=== PATIENT | male | born 1960 | race Caucasian/White ===

== ENCOUNTER 2021-01-05 06:18 | Day surgery (SDC) | payer MEDICAID ==
[~2021-01-05 06:18] MED LIST: Dextrose 5%-0.45% NaCl 1,000 ML IV SCH; Midazolam 1 MG/ML 2 ML SDV ONE; Sodium Chloride 0.9% 10 ML Syringe FLUSH PRN; fentaNYL 100 MCG/2 ML SDV ONE
[2021-01-05] MEDS ORDERED: fentaNYL 100 MCG/2 ML SDV IV ONE ×3 (06:19→07:28)
[2021-01-05] MEDS ORDERED: Midazolam 1 MG/ML 2 ML SDV IV ONE ×7 (06:19→07:37)
--- NOTE | 2021-01-05 09:35 | OR ---
DATE: 01/05/2021 PROCEDURE: Total colonoscopy. INSTRUMENT USED: [id number]-H190DL Olympus video colonoscope. PREMEDICATIONS: Fentanyl 100 mcg intravenous, Versed 4 mg intravenous, nasal O2 cannula. Procedure was done under pulse oximetry, BP recording, and telemetry monitor. INDICATION: Screening colonoscopic examination is done for detection of any polypoid lesions and removal, endoscopic hemostasis therapy if needed. DESCRIPTION OF PROCEDURE: Initial rectal exam was unremarkable. Rigid anoscopy was normal. The colonoscope was passed with ease up to the ileocecal area. Photographs were taken of the normal-appearing cecum, identified by double- bulged ileocecal folds. No bleeding was noted from any of the visualized areas at the commencement of the examination. There was some amount of solid stool material scattered around that could not be aspirated clear, limiting visualization of few areas. Bowel preparation, [place] scale score 1 in right colon, 2 in transverse colon, and 1 in descending colon, total score 4. No stricture. No vascular ectasia. No large isolated ulcerations seen. No evidence of diffuse inflammatory bowel disease in the form of friability, contact bleeding, or ulcerations. No polyp or tumor mass identified. Probing the proximal sides of folds and flexures using adequate distention and clearing up the stool material, withdrawal of the scope was made, cecum to rectum time over 6 minutes. No bleeding was noted from any of the visualized areas at the completion of examination. IMPRESSION: Normal study. The patient tolerated the procedure well. [facility] /[id number]
[2021-01-05 10:16] VITALS: BP 124/74; PULSE 59
== END 2021-01-05 09:47 | disposition home or self-care (01) ==
LOC: DL.ENDO 06:18
PROVIDERS: ATTEND Internal Medicine Gastroenterology
DX: Z12.11 Encounter for screening for malignant neoplasm of colon (principal); E66.09 Other obesity due to excess calories; E11.9 Type 2 diabetes mellitus without complications; G47.33 Obstructive sleep apnea (adult) (pediatric); B18.2 Chronic viral hepatitis C; Z68.34 Body mass index [BMI] 34.0-34.9, adult
CPT/HCPCS: J2250; J3010; J7042

== ENCOUNTER 2021-09-22 18:29 | Inpatient (IN) | payer MEDICAID, OTHER ==
[2021-09-22] MEDS ORDERED: Sodium Chloride 0.9% 1,000 ML IV ONE ×2 (19:54→21:11)
[2021-09-22] MEDS ORDERED: Acetaminophen 325 MG Tab PO ONE (20:26)
[2021-09-22 21:38] LABS: ANION GAP 10.8 mEq/L (7-13)
[2021-09-22] MEDS ORDERED: Magnesium Sulfate/Water 2 GM in Premix Bag 1 BAG IV ONE (21:55)
[2021-09-22] MEDS ORDERED: Levofloxacin/Dextrose 5%-Water 750 MG in Premix Bag 1 BAG IV ONE (22:41)
[2021-09-22] MEDS ORDERED: HYDROmorphone 0.5 MG/0.5 ML Syringe IVPUSH PRN (23:56)
[2021-09-22] MEDS ORDERED: Polyethylene Glycol 3350 Powder 17 GM Packet PO PRN (23:56)
[2021-09-22] MEDS ORDERED: Ondansetron 4 MG/2 ML SDV IVPUSH PRN (23:56)
[2021-09-22] MEDS ORDERED: Acetaminophen/HYDROcodone 325-10 MG Tab PO PRN (23:56)
[2021-09-22] MEDS ORDERED: Albuterol/Ipratropium 3.0-0.5 MG/3 ML Neb Soln NEB PRN (23:56)
[2021-09-23] MEDS ORDERED: guaiFENesin/Dextromethorphan 100-10 MG/5 ML Soln 5 ML Cup PO PRN (00:09)
[2021-09-23] MEDS ORDERED: VANCOMYCIN IV SCH (00:15)
[2021-09-23] MEDS ORDERED: SODIUM CHLORIDE 0.9% IV SCH (00:15)
[2021-09-23] MEDS ORDERED: 50% Dextrose in Water 50 ML Syringe IVPUSH PRN ×2 (00:35→18:55)
[2021-09-23] MEDS ORDERED: Glucagon,Human Recombinant 1 MG Vial IM PRN ×2 (00:35→18:55)
[2021-09-23] MEDS: Piperacillin/Tazobactam 3.375 GM in Sodium Chloride 0.9% 100 ML IV SCH ×4 (00:59→17:50)
[2021-09-23] MEDS: Zolpidem 5 MG Tab PO PRN (01:00)
[2021-09-23] MEDS ORDERED: Dexamethasone 4 MG/ML SDV IVPUSH ONE (01:00)
[2021-09-23] MEDS ORDERED: VANCOmycin 1.5 GM/300 ML 1.5 GM in Premix Bag 1 BAG IV ONE (01:00)
[2021-09-23] MEDS ORDERED: Acetaminophen/HYDROcodone 325-5 MG Tab PO PRN (01:01)
[2021-09-23] MEDS: Insulin Lispro 100 Units/ML 3 ML Vial SUBCUT SCH ×4 (01:16→17:52)
[2021-09-23 06:57] LABS: RESPIRATORY SYNCYTIAL VIR NAA NEGATIVE (NEGATIVE)
[2021-09-23 07:09] LABS: CORONAVIRUS COVID-19 NAA POSITIVE (NEGATIVE)
[2021-09-23 07:59] LABS: ANION GAP 12.8 mEq/L (7-13); CHLORIDE,CL 99 mmol/L (98-107); SODIUM,NA 132 mmol/L (136-145)
[2021-09-23] MEDS ORDERED: Glimepiride 2 MG Tab PO SCH (08:00)
[2021-09-23] MEDS: Famotidine 20 MG Tab PO SCH ×2 (08:59→21:32)
[2021-09-23] MEDS: Escitalopram 10 MG Tab PO SCH (09:00)
[2021-09-23] MEDS: Allopurinol 300 MG Tab PO SCH (09:00)
[2021-09-23] MEDS: Enoxaparin 40 MG/0.4 ML Syringe SUBCUT SCH ×2 (09:00→21:31)
[2021-09-23] MEDS ORDERED: REMDESIVIR 200 MG in Sodium Chloride 0.9% 250 ML IV ONE (15:00)
[2021-09-23] MEDS: Acetaminophen 325 MG Tab PO PRN (17:54)
[2021-09-23] MEDS: Sodium Chloride 0.9% 10 ML Syringe FLUSH PRN (17:56)
[2021-09-23] MEDS ORDERED: Insulin Glarg,Human.Rec.Analog 100 Unit/ML SUBCUT SCH (21:00)
[2021-09-23] MEDS: Dexamethasone 4 MG Tab PO SCH (21:30)
[2021-09-23] MEDS: Glimepiride 2 MG Tab PO SCH (21:31)
[2021-09-24] MEDS: Piperacillin/Tazobactam 3.375 GM in Sodium Chloride 0.9% 100 ML IV SCH ×4 (00:23→17:42)
[2021-09-24 06:54] LABS: ANION GAP 14.6 mEq/L (7-13); CHLORIDE,CL 102 mmol/L (98-107); SODIUM,NA 136 mmol/L (136-145)
[2021-09-24] MEDS ORDERED: Dexamethasone 4 MG Tab PO SCH (09:00)
[2021-09-24] MEDS: Insulin Lispro 100 Units/ML 3 ML Vial SUBCUT SCH ×3 (09:13→17:15)
[2021-09-24] MEDS: Insulin Glarg,Human.Rec.Analog 100 Unit/ML SUBCUT SCH ×2 (09:15→21:23)
[2021-09-24] MEDS: Allopurinol 300 MG Tab PO SCH (09:17)
[2021-09-24] MEDS: Glimepiride 2 MG Tab PO SCH ×2 (09:18→21:22)
[2021-09-24] MEDS: Famotidine 20 MG Tab PO SCH ×2 (09:19→21:22)
[2021-09-24] MEDS: Dexamethasone 4 MG Tab PO SCH ×2 (09:19→21:22)
[2021-09-24] MEDS: Escitalopram 10 MG Tab PO SCH (09:19)
[2021-09-24] MEDS: Enoxaparin 40 MG/0.4 ML Syringe SUBCUT SCH ×2 (09:21→21:21)
[2021-09-24] MEDS: Sodium Chloride 0.9% 10 ML Syringe FLUSH PRN ×3 (12:46→16:01)
[2021-09-24] MEDS: REMDESIVIR 100 MG in Sodium Chloride 0.9% 100 ML IV SCH (15:05)
[2021-09-24] MEDS: Saccharomyces Boulardii (Probiotic) 250 MG Cap PO SCH ×2 (16:01→21:22)
[2021-09-24] MEDS: Zolpidem 5 MG Tab PO PRN (21:22)
[2021-09-24] MEDS: Melatonin 3 MG Tab PO SCH (21:22)
[2021-09-25] MEDS: Piperacillin/Tazobactam 3.375 GM in Sodium Chloride 0.9% 100 ML IV SCH ×4 (00:30→17:55)
[2021-09-25 06:25] LABS: ANION GAP 15.3 mEq/L (7-13); CHLORIDE,CL 100 mmol/L (98-107); SODIUM,NA 136 mmol/L (136-145)
[2021-09-25] MEDS: Sodium Chloride 0.9% 10 ML Syringe FLUSH PRN ×2 (09:45→17:54)
[2021-09-25] MEDS: Insulin Lispro 100 Units/ML 3 ML Vial SUBCUT SCH ×3 (09:46→16:58)
[2021-09-25] MEDS: Insulin Glarg,Human.Rec.Analog 100 Unit/ML SUBCUT SCH ×2 (09:49→21:41)
[2021-09-25] MEDS: Enoxaparin 40 MG/0.4 ML Syringe SUBCUT SCH ×2 (09:51→21:42)
[2021-09-25] MEDS: Dexamethasone 4 MG Tab PO SCH ×2 (09:53→21:38)
[2021-09-25] MEDS: Allopurinol 300 MG Tab PO SCH (09:54)
[2021-09-25] MEDS: Famotidine 20 MG Tab PO SCH ×2 (09:54→21:38)
[2021-09-25] MEDS: Sertraline 50 MG Tab PO SCH (09:55)
[2021-09-25] MEDS: Saccharomyces Boulardii (Probiotic) 250 MG Cap PO SCH ×2 (09:55→21:38)
[2021-09-25] MEDS: Cholecalciferol (Vitamin D3) 25 MCG Tab PO SCH (09:55)
[2021-09-25] MEDS: Glimepiride 2 MG Tab PO SCH ×2 (10:09→21:37)
[2021-09-25] MEDS: REMDESIVIR 100 MG in Sodium Chloride 0.9% 100 ML IV SCH (16:43)
[2021-09-25] MEDS: Melatonin 3 MG Tab PO SCH (21:38)
[2021-09-26] MEDS: Piperacillin/Tazobactam 3.375 GM in Sodium Chloride 0.9% 100 ML IV SCH ×4 (00:21→17:55)
[2021-09-26 07:05] LABS: ANION GAP 14.1 mEq/L (7-13); CHLORIDE,CL 100 mmol/L (98-107); SODIUM,NA 137 mmol/L (136-145)
[2021-09-26] MEDS: Insulin Lispro 100 Units/ML 3 ML Vial SUBCUT SCH ×3 (09:06→17:13)
[2021-09-26] MEDS: Insulin Glarg,Human.Rec.Analog 100 Unit/ML SUBCUT SCH ×2 (09:07→20:54)
[2021-09-26] MEDS: Famotidine 20 MG Tab PO SCH ×2 (09:07→20:54)
[2021-09-26] MEDS: Glimepiride 2 MG Tab PO SCH ×2 (09:08→20:52)
[2021-09-26] MEDS: Allopurinol 300 MG Tab PO SCH (09:08)
[2021-09-26] MEDS: Saccharomyces Boulardii (Probiotic) 250 MG Cap PO SCH ×2 (09:08→20:54)
[2021-09-26] MEDS: Cholecalciferol (Vitamin D3) 25 MCG Tab PO SCH (09:08)
[2021-09-26] MEDS: Sertraline 50 MG Tab PO SCH (09:09)
[2021-09-26] MEDS: Dexamethasone 4 MG Tab PO SCH ×2 (09:09→20:54)
[2021-09-26] MEDS: Enoxaparin 40 MG/0.4 ML Syringe SUBCUT SCH ×2 (09:09→20:55)
[2021-09-26] MEDS: Sodium Chloride 0.9% 10 ML Syringe FLUSH PRN (12:37)
[2021-09-26] MEDS ORDERED: Magnesium Sulfate/Water 2 GM in Premix Bag 1 BAG IV ONE ×2 (12:58→21:00)
[2021-09-26] MEDS ORDERED: Insulin Glarg,Human.Rec.Analog 100 Unit/ML SUBCUT ONE (13:00)
[2021-09-26] MEDS: REMDESIVIR 100 MG in Sodium Chloride 0.9% 100 ML IV SCH (14:57)
[2021-09-26] MEDS: Melatonin 3 MG Tab PO SCH (20:53)
[2021-09-26] MEDS: Acetaminophen 325 MG Tab PO PRN (23:02)
[2021-09-27] MEDS: Piperacillin/Tazobactam 3.375 GM in Sodium Chloride 0.9% 100 ML IV SCH ×4 (00:16→18:02)
[2021-09-27 05:59] LABS: ANION GAP 14.4 mEq/L (7-13); CHLORIDE,CL 100 mmol/L (98-107); SODIUM,NA 136 mmol/L (136-145)
[2021-09-27] MEDS: Sertraline 50 MG Tab PO SCH (08:58)
[2021-09-27] MEDS: Allopurinol 300 MG Tab PO SCH (08:59)
[2021-09-27] MEDS: Glimepiride 2 MG Tab PO SCH (08:59)
[2021-09-27] MEDS: Dexamethasone 4 MG Tab PO SCH (09:00)
[2021-09-27] MEDS: Cholecalciferol (Vitamin D3) 25 MCG Tab PO SCH (09:00)
[2021-09-27] MEDS: Famotidine 20 MG Tab PO SCH (09:00)
[2021-09-27] MEDS: Insulin Lispro 100 Units/ML 3 ML Vial SUBCUT SCH ×3 (09:01→17:17)
[2021-09-27] MEDS: Saccharomyces Boulardii (Probiotic) 250 MG Cap PO SCH (09:02)
[2021-09-27] MEDS: Insulin Glarg,Human.Rec.Analog 100 Unit/ML SUBCUT SCH (09:02)
[2021-09-27] MEDS: Enoxaparin 40 MG/0.4 ML Syringe SUBCUT SCH (09:03)
[2021-09-27] MEDS: REMDESIVIR 100 MG in Sodium Chloride 0.9% 100 ML IV SCH (14:29)
[2021-09-27] MEDS: Sodium Chloride 0.9% 10 ML Syringe FLUSH PRN (14:29)
[2021-09-27] MEDS ORDERED: VANCOmycin 1.75 GM/350 ML 1.75 GM in Premix Bag 1 BAG IV SCH (15:00)
[2021-09-27 16:21] VITALS: BP 132/69; PULSE 61
[2021-09-27] MEDS ORDERED: Iopamidol 755 Mg/ML 100 ML Bottle IV ONE (18:24)
== END 2021-09-27 18:25 | disposition home or self-care (01) | DRG 871 ==
LOC: DL.ED 18:29 → DL.MS 23:13
PROVIDERS: ADMIT Internal Medicine; ATTEND Internal Medicine
PROC: 3E03329 Introduction of Other Anti-infective into Peripheral Vein, Percutaneous Approach (ICD-10-PCS; 2021-09-22)
PROC: XW033E5 Introduction of Remdesivir Anti-infective into Peripheral Vein, Percutaneous Approach, New Technology Group 5 (ICD-10-PCS; principal; 2021-09-23)
PROC: 3E0DX3Z Introduction of Anti-inflammatory into Mouth and Pharynx, External Approach (ICD-10-PCS; 2021-09-23)
PROC: 3E0333Z Introduction of Anti-inflammatory into Peripheral Vein, Percutaneous Approach (ICD-10-PCS; 2021-09-23)
DX: A41.9 Sepsis, unspecified organism (principal); U07.1 COVID-19; J12.82 Pneumonia due to coronavirus disease 2019; E87.1 Hypo-osmolality and hyponatremia; D84.9 Immunodeficiency, unspecified; E46 Unspecified protein-calorie malnutrition; C91.10 Chronic lymphocytic leukemia of B-cell type not having achieved remission; E11.65 Type 2 diabetes mellitus with hyperglycemia; G47.33 Obstructive sleep apnea (adult) (pediatric); Z66 Do not resuscitate; E55.9 Vitamin D deficiency, unspecified; M62.81 Muscle weakness (generalized); G47.30 Sleep apnea, unspecified; E66.9 Obesity, unspecified; E87.8 Other disorders of electrolyte and fluid balance, not elsewhere classified; I95.1 Orthostatic hypotension; E83.42 Hypomagnesemia; R74.8 Abnormal levels of other serum enzymes; D64.9 Anemia, unspecified; F32.A Depression, unspecified; K44.9 Diaphragmatic hernia without obstruction or gangrene; K76.0 Fatty (change of) liver, not elsewhere classified; M10.9 Gout, unspecified; R16.1 Splenomegaly, not elsewhere classified; R79.1 Abnormal coagulation profile; Z28.82 Immunization not carried out because of caregiver refusal; Z79.899 Other long term (current) drug therapy; Z68.31 Body mass index [BMI] 31.0-31.9, adult
CPT/HCPCS: 0241U; 36415; 71045; 71260; 71275; 80053; 80202; 81003; 82248; 82306; 82728; 82947; 83605; 83735; 83880; 84145; 84300; 84439; 84443; 84484; 85025; 85379; 85610; 85651; 86140; 86606; 86612; 86698; 87040; 87305; 87641; 93005; 93010; 96365; 96375; 99282; 99285-25; A9270-GY; J1100; J1642; J1650; J1815-GY; J1956; J2543; J3370; J3475; J7030; J7050; J8540; Q9967

== ENCOUNTER 2021-10-12 10:29 | Inpatient (IN) | payer MEDICAID ==
[2021-10-12] MEDS ORDERED: Sodium Chloride 0.9% 1,000 ML IV ONE (11:15)
[2021-10-12] MEDS ORDERED: guaiFENesin/Dextromethorphan 100-10 MG/5 ML Soln 5 ML Cup PO PRN (13:54)
[2021-10-12] MEDS ORDERED: Albuterol/Ipratropium 3.0-0.5 MG/3 ML Neb Soln NEB PRN (14:09)
[2021-10-12] MEDS ORDERED: Acetaminophen/HYDROcodone 325-10 MG Tab PO PRN (14:09)
[2021-10-12] MEDS ORDERED: Ondansetron 4 MG/2 ML SDV IVPUSH PRN (14:09)
[2021-10-12] MEDS ORDERED: Polyethylene Glycol 3350 Powder 17 GM Packet PO PRN (14:09)
[2021-10-12] MEDS ORDERED: Bisacodyl 5 MG Tab PO PRN (14:09)
[2021-10-12] MEDS ORDERED: HYDROmorphone 0.5 MG/0.5 ML Syringe IVPUSH PRN (14:09)
[2021-10-12] MEDS ORDERED: Glucagon,Human Recombinant 1 MG Vial IM PRN (14:20)
[2021-10-12] MEDS ORDERED: 50% Dextrose in Water 50 ML Syringe IVPUSH PRN (14:20)
[2021-10-12] MEDS: Sodium Chloride 0.9% 1,000 ML IV SCH (16:39)
[2021-10-12] MEDS: Acetaminophen 325 MG Tab PO PRN (16:39)
[2021-10-12] MEDS: Insulin Lispro 100 Units/ML 3 ML Vial SUBCUT SCH (18:08)
[2021-10-12] MEDS ORDERED: Acetaminophen/HYDROcodone 325-5 MG Tab PO PRN (18:15)
[2021-10-12] MEDS: Prochlorperazine 5 MG Tab PO PRN (20:23)
[2021-10-12] MEDS: Insulin Glarg,Human.Rec.Analog 100 Unit/ML SUBCUT SCH (20:24)
[2021-10-12 20:29] LABS: ANION GAP 11.3 mEq/L (7-13)
[2021-10-12] MEDS ORDERED: Potassium Chloride 10 MEQ Tab.ER PO ONE (21:55)
[2021-10-13] MEDS: Sodium Chloride 0.9% 1,000 ML IV SCH ×3 (00:59→17:26)
[2021-10-13] MEDS: Insulin Lispro 100 Units/ML 3 ML Vial SUBCUT SCH ×3 (08:09→17:08)
[2021-10-13 08:24] LABS: ANION GAP 14.2 mEq/L (7-13); CHLORIDE,CL 95 mmol/L (98-107); SODIUM,NA 131 mmol/L (136-145)
[2021-10-13] MEDS: Enoxaparin 40 MG/0.4 ML Syringe SUBCUT SCH (08:24)
[2021-10-13] MEDS: Insulin Glarg,Human.Rec.Analog 100 Unit/ML SUBCUT SCH ×2 (08:24→21:37)
[2021-10-13] MEDS: Sertraline 50 MG Tab PO SCH (08:25)
[2021-10-13] MEDS: Ondansetron 4 MG Tab.DIS PO PRN (08:25)
[2021-10-13] MEDS ORDERED: Scopolamine 1.5 MG Transdermal Patch TOP ONE ×2 (09:34→12:45)
[2021-10-13] MEDS ORDERED: Magnesium Sulfate/Water 2 GM in Premix Bag 1 BAG IV ONE (10:00)
[2021-10-13] MEDS ORDERED: Iopamidol 755 Mg/ML 100 ML Bottle IVPUSH ONE (10:40)
[2021-10-13] MEDS: Acetaminophen 325 MG Tab PO PRN ×2 (13:07→21:57)
[2021-10-13] MEDS: metroNIDAZOLE/Normal Saline 500 MG in Premix Bag 100 BAG IV SCH ×2 (15:32→22:56)
[2021-10-13] MEDS: Ciprofloxacin in D5W 400 MG in Premix Bag 1 BAG IV SCH ×4 (17:26→21:42)
[2021-10-13] MEDS: Check Patch TRDERM SCH (21:40)
[2021-10-13] MEDS ORDERED: Calcium Carbonate 500 MG Tab.Chew PO PRN (21:47)
[2021-10-14] MEDS: Prochlorperazine 5 MG Tab PO PRN ×3 (00:50→20:47)
[2021-10-14 05:47] LABS: BORDETELLA PARAPERT IS1001 Not Detected (Not Detected)
[2021-10-14 07:05] LABS: ANION GAP 10.5 mEq/L (7-13); CHLORIDE,CL 97 mmol/L (98-107); SODIUM,NA 131 mmol/L (136-145)
[2021-10-14] MEDS: metroNIDAZOLE/Normal Saline 500 MG in Premix Bag 100 BAG IV SCH ×3 (07:17→22:51)
[2021-10-14] MEDS: Insulin Lispro 100 Units/ML 3 ML Vial SUBCUT SCH ×3 (08:17→17:07)
[2021-10-14] MEDS ORDERED: Simethicone 80 MG Tab.Chew PO PRN (08:40)
[2021-10-14] MEDS: Enoxaparin 40 MG/0.4 ML Syringe SUBCUT SCH (09:18)
[2021-10-14] MEDS: Sertraline 50 MG Tab PO SCH (09:19)
[2021-10-14] MEDS: Insulin Glarg,Human.Rec.Analog 100 Unit/ML SUBCUT SCH ×2 (09:20→21:34)
[2021-10-14] MEDS: Check Patch TRDERM SCH ×2 (09:24→21:00)
[2021-10-14] MEDS ORDERED: Magnesium Sulfate/Water 2 GM in Premix Bag 1 BAG IV ONE (11:11)
[2021-10-14] MEDS ORDERED: Midodrine 2.5 MG Tab PO PRN (11:11)
[2021-10-14] MEDS: Sodium Chloride 0.9% 1,000 ML IV SCH (15:06)
[2021-10-14] MEDS: Ciprofloxacin in D5W 400 MG in Premix Bag 1 BAG IV SCH ×4 (15:07→21:34)
[2021-10-14] MEDS: Acetaminophen 325 MG Tab PO PRN (15:09)
[2021-10-14] MEDS ORDERED: Loperamide 2 MG Cap PO ONE (20:51)
[2021-10-15] MEDS: Sodium Chloride 0.9% 1,000 ML IV SCH ×2 (03:37→15:05)
[2021-10-15] MEDS: Ciprofloxacin in D5W 400 MG in Premix Bag 1 BAG IV SCH ×8 (05:58→21:25)
[2021-10-15 06:51] LABS: ANION GAP 11.4 mEq/L (7-13); CHLORIDE,CL 97 mmol/L (98-107); SODIUM,NA 132 mmol/L (136-145)
[2021-10-15] MEDS: metroNIDAZOLE/Normal Saline 500 MG in Premix Bag 100 BAG IV SCH ×3 (07:09→22:47)
[2021-10-15] MEDS: Insulin Lispro 100 Units/ML 3 ML Vial SUBCUT SCH ×3 (08:26→17:02)
[2021-10-15] MEDS: Insulin Glarg,Human.Rec.Analog 100 Unit/ML SUBCUT SCH ×2 (08:51→21:24)
[2021-10-15] MEDS: Sertraline 50 MG Tab PO SCH (08:53)
[2021-10-15] MEDS: Ondansetron 4 MG Tab.DIS PO PRN (08:53)
[2021-10-15] MEDS: Glimepiride 2 MG Tab PO SCH (08:53)
[2021-10-15] MEDS: Enoxaparin 40 MG/0.4 ML Syringe SUBCUT SCH (08:53)
[2021-10-15] MEDS: Check Patch TRDERM SCH (09:55)
[2021-10-15] MEDS: Saccharomyces Boulardii (Probiotic) 250 MG Cap PO SCH ×2 (10:32→21:24)
[2021-10-15] MEDS ORDERED: Acetaminophen/HYDROcodone 325-5 MG Tab PO PRN (11:15)
[2021-10-15] MEDS ORDERED: Calcium Carbonate 500 MG Tab.Chew PO PRN (16:15)
[2021-10-15] MEDS ORDERED: Potassium Chloride 10 MEQ Tab.ER PO ONE (18:00)
[2021-10-15] MEDS ORDERED: Mirtazapine 15 MG Tab PO ONE (21:02)
[2021-10-15] MEDS: Acetaminophen 325 MG Tab PO PRN (21:23)
[2021-10-15] MEDS: Zolpidem 5 MG Tab PO PRN (21:23)
[2021-10-16] MEDS: Sodium Chloride 0.9% 1,000 ML IV SCH ×2 (02:00→11:47)
[2021-10-16] MEDS: Ciprofloxacin in D5W 400 MG in Premix Bag 1 BAG IV SCH ×6 (05:25→21:38)
[2021-10-16] MEDS: Acetaminophen 325 MG Tab PO PRN ×3 (06:15→19:05)
[2021-10-16] MEDS: metroNIDAZOLE/Normal Saline 500 MG in Premix Bag 100 BAG IV SCH ×3 (06:16→22:46)
[2021-10-16 06:47] LABS: SODIUM,NA 137 mmol/L (136-145)
[2021-10-16 06:48] LABS: ANION GAP 11.9 mEq/L (7-13); CHLORIDE,CL 102 mmol/L (98-107)
[2021-10-16] MEDS: Sertraline 50 MG Tab PO SCH (08:13)
[2021-10-16] MEDS: Saccharomyces Boulardii (Probiotic) 250 MG Cap PO SCH ×2 (08:13→20:15)
[2021-10-16] MEDS: Glimepiride 2 MG Tab PO SCH (08:14)
[2021-10-16] MEDS: Enoxaparin 40 MG/0.4 ML Syringe SUBCUT SCH (08:15)
[2021-10-16] MEDS: Insulin Lispro 100 Units/ML 3 ML Vial SUBCUT SCH ×3 (08:17→19:04)
[2021-10-16] MEDS: Insulin Glarg,Human.Rec.Analog 100 Unit/ML SUBCUT SCH ×2 (08:21→21:30)
[2021-10-16] MEDS ORDERED: diphenhydrAMINE 25 MG Tab PO PRN (20:12)
[2021-10-16] MEDS ORDERED: Mirtazapine 15 MG Tab PO SCH (21:00)
[2021-10-16] MEDS: Mirtazapine 15 MG Tab PO SCH (21:29)
[2021-10-16] MEDS: Zolpidem 5 MG Tab PO PRN (21:29)
[2021-10-16] MEDS: Sodium Chloride 0.9% 10 ML Syringe FLUSH PRN (23:42)
[2021-10-17] MEDS: Ciprofloxacin in D5W 400 MG in Premix Bag 1 BAG IV SCH ×6 (05:40→21:56)
[2021-10-17] MEDS: Sodium Chloride 0.9% 10 ML Syringe FLUSH PRN ×3 (05:41→06:53)
[2021-10-17] MEDS: metroNIDAZOLE/Normal Saline 500 MG in Premix Bag 100 BAG IV SCH ×3 (06:54→22:04)
[2021-10-17 07:36] LABS: ANION GAP 13.2 mEq/L (7-13); CHLORIDE,CL 100 mmol/L (98-107); SODIUM,NA 136 mmol/L (136-145)
[2021-10-17] MEDS: Saccharomyces Boulardii (Probiotic) 250 MG Cap PO SCH ×2 (09:21→21:54)
[2021-10-17] MEDS: Insulin Lispro 100 Units/ML 3 ML Vial SUBCUT SCH ×3 (09:21→19:57)
[2021-10-17] MEDS: Glimepiride 2 MG Tab PO SCH (09:22)
[2021-10-17] MEDS: Enoxaparin 40 MG/0.4 ML Syringe SUBCUT SCH (09:23)
[2021-10-17] MEDS: Sertraline 50 MG Tab PO SCH (09:23)
[2021-10-17] MEDS ORDERED: Magnesium Sulfate/Water 2 GM in Premix Bag 1 BAG IV ONE (10:07)
[2021-10-17] MEDS ORDERED: Lactated Ringers 1,000 ML IV SCH (10:15)
[2021-10-17] MEDS: Insulin Glarg,Human.Rec.Analog 100 Unit/ML SUBCUT SCH ×2 (11:46→21:52)
[2021-10-17] MEDS: Acetaminophen 325 MG Tab PO PRN (12:44)
[2021-10-17] MEDS: Meropenem 1 GM in Sodium Chloride 0.9% 100 ML IV SCH ×2 (12:46→20:16)
[2021-10-17] MEDS: Hydrocortisone Sodium Succinate 100 MG/2 ML SDV IVPUSH SCH ×2 (15:11→21:54)
[2021-10-17] MEDS: Mirtazapine 15 MG Tab PO SCH (21:54)
[2021-10-18] MEDS: Meropenem 1 GM in Sodium Chloride 0.9% 100 ML IV SCH ×3 (03:12→18:12)
[2021-10-18] MEDS: Hydrocortisone Sodium Succinate 100 MG/2 ML SDV IVPUSH SCH ×3 (06:17→22:04)
[2021-10-18] MEDS: Ciprofloxacin in D5W 400 MG in Premix Bag 1 BAG IV SCH ×6 (06:19→22:04)
[2021-10-18] MEDS: metroNIDAZOLE/Normal Saline 500 MG in Premix Bag 100 BAG IV SCH ×3 (06:21→23:12)
[2021-10-18 07:06] LABS: ANION GAP 13.9 mEq/L (7-13); CHLORIDE,CL 100 mmol/L (98-107); SODIUM,NA 139 mmol/L (136-145)
[2021-10-18] MEDS ORDERED: Magnesium Sulfate/Water 2 GM in Premix Bag 1 BAG IV ONE (08:06)
[2021-10-18] MEDS: Insulin Lispro 100 Units/ML 3 ML Vial SUBCUT SCH ×3 (09:00→18:12)
[2021-10-18] MEDS: Insulin Glarg,Human.Rec.Analog 100 Unit/ML SUBCUT SCH ×2 (09:01→20:56)
[2021-10-18] MEDS: Enoxaparin 40 MG/0.4 ML Syringe SUBCUT SCH ×2 (09:02→20:57)
[2021-10-18] MEDS: Saccharomyces Boulardii (Probiotic) 250 MG Cap PO SCH ×2 (09:02→20:57)
[2021-10-18] MEDS: Glimepiride 2 MG Tab PO SCH (09:02)
[2021-10-18] MEDS: Sertraline 50 MG Tab PO SCH (09:03)
[2021-10-18] MEDS ORDERED: Bumetanide 1 MG/4 ML MDV IVPUSH ONE (10:24)
[2021-10-18] MEDS: Acetaminophen 325 MG Tab PO PRN ×2 (15:09→20:57)
[2021-10-18] MEDS ORDERED: Glucagon,Human Recombinant 1 MG Vial IM PRN (17:27)
[2021-10-18] MEDS ORDERED: 50% Dextrose in Water 50 ML Syringe IVPUSH PRN (17:27)
[2021-10-18] MEDS ORDERED: Insulin Glarg,Human.Rec.Analog 100 Unit/ML SUBCUT ONE (17:27)
[2021-10-18] MEDS: Mirtazapine 15 MG Tab PO SCH (20:57)
[2021-10-19] MEDS: Meropenem 1 GM in Sodium Chloride 0.9% 100 ML IV SCH ×3 (03:11→17:40)
[2021-10-19] MEDS: Ciprofloxacin in D5W 400 MG in Premix Bag 1 BAG IV SCH ×6 (05:31→21:48)
[2021-10-19] MEDS: Hydrocortisone Sodium Succinate 100 MG/2 ML SDV IVPUSH SCH ×3 (06:38→20:43)
[2021-10-19] MEDS: metroNIDAZOLE/Normal Saline 500 MG in Premix Bag 100 BAG IV SCH ×3 (06:39→22:51)
[2021-10-19 07:08] LABS: ANION GAP 12.6 mEq/L (7-13); CHLORIDE,CL 102 mmol/L (98-107); SODIUM,NA 141 mmol/L (136-145)
[2021-10-19] MEDS: Glimepiride 2 MG Tab PO SCH (08:25)
[2021-10-19] MEDS: Sertraline 50 MG Tab PO SCH (08:25)
[2021-10-19] MEDS: Saccharomyces Boulardii (Probiotic) 250 MG Cap PO SCH ×2 (08:25→20:56)
[2021-10-19] MEDS: Enoxaparin 40 MG/0.4 ML Syringe SUBCUT SCH ×2 (08:26→20:55)
[2021-10-19] MEDS ORDERED: Magnesium Sulfate/Water 2 GM in Premix Bag 1 BAG IV ONE (08:30)
[2021-10-19] MEDS: Insulin Lispro 100 Units/ML 3 ML Vial SUBCUT SCH ×3 (08:31→17:44)
[2021-10-19] MEDS: Insulin Glarg,Human.Rec.Analog 100 Unit/ML SUBCUT SCH ×2 (08:32→21:00)
[2021-10-19] MEDS: Acetaminophen 325 MG Tab PO PRN ×2 (11:36→20:56)
[2021-10-19] MEDS: Mirtazapine 15 MG Tab PO SCH (20:56)
[2021-10-19] MEDS ORDERED: Fluconazole/Normal Saline 200 MG in Premix Bag 1 BAG IV ONE (21:00)
[2021-10-19] MEDS ORDERED: Bumetanide 1 MG/4 ML MDV IVPUSH ONE (21:00)
[2021-10-20] MEDS: Meropenem 1 GM in Sodium Chloride 0.9% 100 ML IV SCH ×3 (01:38→17:54)
[2021-10-20] MEDS: Hydrocortisone Sodium Succinate 100 MG/2 ML SDV IVPUSH SCH ×2 (02:08→10:15)
[2021-10-20] MEDS: Ciprofloxacin in D5W 400 MG in Premix Bag 1 BAG IV SCH ×4 (05:00→14:09)
[2021-10-20] MEDS: metroNIDAZOLE/Normal Saline 500 MG in Premix Bag 100 BAG IV SCH ×2 (06:01→15:49)
[2021-10-20 06:47] LABS: CHLORIDE,CL 100 mmol/L (98-107); SODIUM,NA 139 mmol/L (136-145)
[2021-10-20] MEDS ORDERED: Fluconazole 100 MG Tab PO SCH (09:00)
[2021-10-20] MEDS: Saccharomyces Boulardii (Probiotic) 250 MG Cap PO SCH (09:13)
[2021-10-20] MEDS: Enoxaparin 40 MG/0.4 ML Syringe SUBCUT SCH (09:14)
[2021-10-20] MEDS: Glimepiride 2 MG Tab PO SCH (09:15)
[2021-10-20] MEDS: Sertraline 50 MG Tab PO SCH (09:15)
[2021-10-20] MEDS: Insulin Lispro 100 Units/ML 3 ML Vial SUBCUT SCH ×3 (09:18→17:51)
[2021-10-20] MEDS: Insulin Glarg,Human.Rec.Analog 100 Unit/ML SUBCUT SCH (09:19)
[2021-10-20] MEDS: Loperamide 2 MG Cap PO PRN ×2 (11:07→17:57)
[2021-10-20] MEDS: Acetaminophen 325 MG Tab PO PRN (11:07)
[2021-10-20] MEDS ORDERED: Potassium Chloride 10 MEQ Tab.ER PO ONE (12:00)
[2021-10-20 16:20] VITALS: BP 110/63; PULSE 71
== END 2021-10-20 18:05 | DRG 871 ==
LOC: DL.ED 10:29 → DL.MS 12:54 → DL.ED 13:16 → EEVIPCON 13:21 → UNDOADMIN 13:21 → DL.MS 13:21
PROVIDERS: ADMIT Internal Medicine; ATTEND Internal Medicine
DX: A41.9 Sepsis, unspecified organism (principal); J18.9 Pneumonia, unspecified organism; J96.01 Acute respiratory failure with hypoxia; U07.1 COVID-19; K52.1 Toxic gastroenteritis and colitis; D84.821 Immunodeficiency due to drugs; E87.1 Hypo-osmolality and hyponatremia; N17.9 Acute kidney failure, unspecified; E87.2 Acidosis; B37.89 Other sites of candidiasis; F32.A Depression, unspecified; G47.33 Obstructive sleep apnea (adult) (pediatric); T17.908A Unspecified foreign body in respiratory tract, part unspecified causing other injury, initial encounter; E11.65 Type 2 diabetes mellitus with hyperglycemia; E88.09 Other disorders of plasma-protein metabolism, not elsewhere classified; E87.6 Hypokalemia; E83.42 Hypomagnesemia; E86.0 Dehydration; D69.6 Thrombocytopenia, unspecified; G89.29 Other chronic pain; E66.9 Obesity, unspecified; E79.0 Hyperuricemia without signs of inflammatory arthritis and tophaceous disease; Z66 Do not resuscitate; M54.9 Dorsalgia, unspecified; R11.2 Nausea with vomiting, unspecified; T45.1X5A Adverse effect of antineoplastic and immunosuppressive drugs, initial encounter; Z79.4 Long term (current) use of insulin; Z79.899 Other long term (current) drug therapy; Z87.01 Personal history of pneumonia (recurrent); Z86.14 Personal history of Methicillin resistant Staphylococcus aureus infection; Z86.16 Personal history of COVID-19; Z68.31 Body mass index [BMI] 31.0-31.9, adult
CPT/HCPCS: 36415; 71045; 71260; 74178; 80048; 80053; 81001; 82533; 82550; 82728; 82947; 83605; 83735; 83930; 83935; 84145; 84300; 84484; 85025; 85379; 85651; 86140; 87040; 87046; 87070; 87077; 87103; 87186; 87205; 87486; 87493; 87581; 87633; 87798; 87804; 93005; 93010; 94010; 94060; 94640; 94667; 99223; 99232; 99238; 99284; 99285-25; A9270-GY; J0744; J1450; J1650; J1720; J1815-GY; J2185; J2405; J3475; J3490; J7030; J7620-GY; Q0164; Q9967

== ENCOUNTER 2022-01-26 16:53 | Inpatient (IN) | payer MEDICAID ==
[2022-01-26 17:58] LABS: ANION GAP 9.5 mEq/L (7-13)
[2022-01-26] MEDS ORDERED: Potassium Chloride 10 MEQ Tab.ER PO ONE ×2 (18:00→23:00)
[2022-01-26] MEDS ORDERED: Sodium Chloride 0.9% 1,000 ML IV ONE (18:00)
[2022-01-26] MEDS ORDERED: Magnesium Sulfate/Water 2 GM in Premix Bag 1 BAG IV ONE (18:00)
[2022-01-26] MEDS ORDERED: Potassium Chloride 20 MEQ in Premix Bag 1 BAG IV ONE (18:02)
[2022-01-26] MEDS ORDERED: Ibuprofen 600 MG Tab PO PRN (19:45)
[2022-01-26] MEDS ORDERED: Acetaminophen/HYDROcodone 325-10 MG Tab PO PRN (19:45)
[2022-01-26] MEDS ORDERED: Albuterol/Ipratropium 3.0-0.5 MG/3 ML Neb Soln NEB PRN (19:45)
[2022-01-26] MEDS ORDERED: HYDROmorphone 0.5 MG/0.5 ML Syringe IVPUSH PRN (19:45)
[2022-01-26] MEDS ORDERED: Temazepam 15 MG Cap PO PRN (19:45)
[2022-01-26] MEDS ORDERED: Promethazine 25 MG/ML SDV IM PRN (19:45)
[2022-01-26] MEDS ORDERED: Ondansetron 4 MG/2 ML SDV IVPUSH PRN (19:45)
[2022-01-26] MEDS ORDERED: Sodium Chloride 0.9% 250 ML IV SCH (20:00)
[2022-01-26] MEDS ORDERED: Hydrocortisone Sodium Succinate 100 MG/2 ML SDV IV SCH ×2 (21:00→22:00)
[2022-01-26] MEDS ORDERED: Norepinephrine 4 MG in Dextrose 5% in Water 246 ML IV SCH ×2 (21:00)
[2022-01-26] MEDS ORDERED: Famotidine 20 MG/2 ML SDV IVPUSH PRN (21:43)
[2022-01-26] MEDS ORDERED: methylPREDNISolone Sodium Succinate 125 MG/2 ML SDV IVPUSH PRN (21:43)
[2022-01-26] MEDS ORDERED: diphenhydrAMINE 50 MG/ML SDV IVPUSH PRN (21:43)
[2022-01-26] MEDS: Saccharomyces Boulardii (Probiotic) 250 MG Cap PO SCH (22:37)
[2022-01-26] MEDS: Hydrocortisone Sodium Succinate 100 MG/2 ML SDV IV SCH (22:37)
[2022-01-26] MEDS: Sodium Chloride 0.9% 1,000 ML IV SCH (22:38)
[2022-01-26] MEDS: Piperacillin/Tazobactam 3.375 GM in Sodium Chloride 0.9% 100 ML IV SCH (22:38)
[2022-01-27] MEDS ORDERED: Magnesium Sulfate/Water 2 GM in Premix Bag 1 BAG IV ONE (03:00)
[2022-01-27] MEDS: Piperacillin/Tazobactam 3.375 GM in Sodium Chloride 0.9% 100 ML IV SCH ×4 (03:45→21:45)
[2022-01-27 07:17] LABS: ANION GAP 9.2 mEq/L (7-13)
[2022-01-27] MEDS: Hydrocortisone Sodium Succinate 100 MG/2 ML SDV IV SCH ×2 (08:11→21:48)
[2022-01-27] MEDS: Saccharomyces Boulardii (Probiotic) 250 MG Cap PO SCH ×2 (08:11→21:52)
[2022-01-27] MEDS ORDERED: Hydrocortisone Sodium Succinate 100 MG/2 ML SDV IV SCH ×2 (09:00→22:30)
[2022-01-27] MEDS: Sodium Chloride 0.9% 1,000 ML IV SCH (17:12)
[2022-01-27] MEDS ORDERED: Acetaminophen/HYDROcodone 325-5 MG Tab PO PRN (21:58)
[2022-01-27] MEDS ORDERED: Potassium Chloride 10 MEQ Tab.ER PO ONE (23:00)
[2022-01-28] MEDS: Sodium Chloride 0.9% 1,000 ML IV SCH ×2 (01:27→12:47)
[2022-01-28] MEDS: Piperacillin/Tazobactam 3.375 GM in Sodium Chloride 0.9% 100 ML IV SCH (03:17)
[2022-01-28 07:08] LABS: ANION GAP 8.2 mEq/L (7-13)
[2022-01-28] MEDS ORDERED: Potassium Chloride 10 MEQ Tab.ER PO ONE ×2 (07:23→12:00)
[2022-01-28] MEDS ORDERED: DRONABINOL 2.5 MG PO SCH (09:00)
[2022-01-28] MEDS ORDERED: ATOVAQUONE 750 MG/5 ML PO SCH (09:00)
[2022-01-28] MEDS: Meropenem 1 GM in Sodium Chloride 0.9% 100 ML IV SCH ×3 (09:58→22:02)
[2022-01-28] MEDS: Midodrine 2.5 MG Tab PO SCH ×3 (10:03→17:07)
[2022-01-28] MEDS: Allopurinol 300 MG Tab PO SCH (10:04)
[2022-01-28] MEDS: Saccharomyces Boulardii (Probiotic) 250 MG Cap PO SCH ×2 (10:04→22:01)
[2022-01-28] MEDS: Escitalopram 10 MG Tab PO SCH (10:04)
[2022-01-28] MEDS: Hydrocortisone Sodium Succinate 100 MG/2 ML SDV IV SCH (10:06)
[2022-01-28] MEDS ORDERED: Magnesium Sulfate/Water 2 GM in Premix Bag 1 BAG IV ONE (10:30)
[2022-01-28] MEDS ORDERED: Loperamide 2 MG Cap PO PRN (10:53)
[2022-01-28] MEDS ORDERED: Glucagon,Human Recombinant 1 MG Vial IM PRN (10:54)
[2022-01-28] MEDS ORDERED: 50% Dextrose in Water 50 ML Syringe IVPUSH PRN (10:54)
[2022-01-28] MEDS: Insulin Lispro 100 Units/ML 3 ML Vial SUBCUT SCH ×2 (12:50→17:07)
[2022-01-28] MEDS: traZODone 50 MG Tab PO SCH (22:01)
[2022-01-28] MEDS: Acetaminophen 325 MG Tab PO PRN (22:01)
[2022-01-28] MEDS: Insulin Glarg,Human.Rec.Analog 100 Unit/ML SUBCUT SCH (22:10)
[2022-01-28] MEDS: Sodium Chloride 0.9% 10 ML Syringe FLUSH SCH (22:41)
[2022-01-29] MEDS: Meropenem 1 GM in Sodium Chloride 0.9% 100 ML IV SCH ×3 (05:12→21:26)
[2022-01-29] MEDS: Sodium Chloride 0.9% 10 ML Syringe FLUSH SCH (05:54)
[2022-01-29 06:52] LABS: ANION GAP 9.1 mEq/L (7-13)
[2022-01-29] MEDS ORDERED: Magnesium Sulfate/Water 2 GM in Premix Bag 1 BAG IV ONE ×2 (07:53→21:00)
[2022-01-29] MEDS ORDERED: Potassium Chloride 10 MEQ Tab.ER PO ONE (07:54)
[2022-01-29] MEDS ORDERED: Potassium Chloride 10 MEQ Tab.ER ONE (10:44)
[2022-01-29] MEDS ORDERED: Magnesium Sulfate/Water 50 ML ONE (10:45)
[2022-01-29] MEDS ORDERED: Midodrine 2.5 MG Tab ONE (10:45)
[2022-01-29] MEDS: Saccharomyces Boulardii (Probiotic) 250 MG Cap PO SCH ×2 (11:05→21:19)
[2022-01-29] MEDS: Escitalopram 10 MG Tab PO SCH (11:06)
[2022-01-29] MEDS: Insulin Glarg,Human.Rec.Analog 100 Unit/ML SUBCUT SCH ×2 (11:07→21:31)
[2022-01-29] MEDS: Allopurinol 300 MG Tab PO SCH (11:07)
[2022-01-29] MEDS: Hydrocortisone Sodium Succinate 100 MG/2 ML SDV IVPUSH SCH (11:07)
[2022-01-29] MEDS: Insulin Lispro 100 Units/ML 3 ML Vial SUBCUT SCH ×3 (11:09→17:15)
[2022-01-29] MEDS: Midodrine 2.5 MG Tab PO SCH ×3 (11:31→17:17)
[2022-01-29] MEDS: Acetaminophen 325 MG Tab PO PRN (13:07)
[2022-01-29] MEDS ORDERED: Potassium Chloride 10 MEQ Tab.ER PO SCH (21:00)
[2022-01-29] MEDS: traZODone 50 MG Tab PO SCH (21:20)
[2022-01-29] MEDS ORDERED: Sodium Chloride 0.9% 10 ML Syringe FLUSH PRN (23:48)
[2022-01-30] MEDS: Meropenem 1 GM in Sodium Chloride 0.9% 100 ML IV SCH (05:41)
[2022-01-30 06:48] LABS: ANION GAP 8.4 mEq/L (7-13)
[2022-01-30] MEDS: Insulin Lispro 100 Units/ML 3 ML Vial SUBCUT SCH ×2 (08:47→12:37)
[2022-01-30] MEDS: Midodrine 2.5 MG Tab PO SCH ×2 (09:27→12:36)
[2022-01-30] MEDS: Insulin Glarg,Human.Rec.Analog 100 Unit/ML SUBCUT SCH (09:44)
[2022-01-30] MEDS: Allopurinol 300 MG Tab PO SCH (09:45)
[2022-01-30] MEDS: Escitalopram 10 MG Tab PO SCH (09:46)
[2022-01-30] MEDS: Saccharomyces Boulardii (Probiotic) 250 MG Cap PO SCH (09:46)
[2022-01-30] MEDS: Hydrocortisone Sodium Succinate 100 MG/2 ML SDV IVPUSH SCH (09:46)
[2022-01-30] MEDS ORDERED: Potassium Chloride 10 MEQ Tab.ER PO ONE (09:55)
== END 2022-01-30 13:10 | DRG 314 ==
LOC: DL.ED 16:53 → UNDOADMOB 19:15 → DL.MS 19:15 → OBSVTOIN 20:09
PROVIDERS: ADMIT Internal Medicine; ATTEND Internal Medicine
PROC: 8E0ZXY6 Isolation (ICD-10-PCS; principal; 2022-01-26)
PROC: 3E03329 Introduction of Other Anti-infective into Peripheral Vein, Percutaneous Approach (ICD-10-PCS; 2022-01-26)
DX: T80.211A Bloodstream infection due to central venous catheter, initial encounter (principal); A41.81 Sepsis due to Enterococcus; U07.1 COVID-19; D61.818 Other pancytopenia; D84.9 Immunodeficiency, unspecified; J98.11 Atelectasis; E87.1 Hypo-osmolality and hyponatremia; E87.6 Hypokalemia; E83.42 Hypomagnesemia; E11.65 Type 2 diabetes mellitus with hyperglycemia; E88.09 Other disorders of plasma-protein metabolism, not elsewhere classified; G47.33 Obstructive sleep apnea (adult) (pediatric); R74.8 Abnormal levels of other serum enzymes; I95.9 Hypotension, unspecified; E79.0 Hyperuricemia without signs of inflammatory arthritis and tophaceous disease; F32.A Depression, unspecified; E66.9 Obesity, unspecified; G89.29 Other chronic pain; K44.9 Diaphragmatic hernia without obstruction or gangrene; K76.0 Fatty (change of) liver, not elsewhere classified; M54.9 Dorsalgia, unspecified; R16.1 Splenomegaly, not elsewhere classified; B19.20 Unspecified viral hepatitis C without hepatic coma; Z87.01 Personal history of pneumonia (recurrent); Z86.16 Personal history of COVID-19; Z85.6 Personal history of leukemia; Z79.4 Long term (current) use of insulin; Z79.899 Other long term (current) drug therapy; Z79.52 Long term (current) use of systemic steroids; Z85.72 Personal history of non-Hodgkin lymphomas; Z98.890 Other specified postprocedural states; Z98.52 Vasectomy status; Z68.26 Body mass index [BMI] 26.0-26.9, adult
CPT/HCPCS: 36415; 71045; 74176; 80053; 81001; 82533; 82550; 82947; 83605; 83735; 84100; 84145; 85025; 85651; 86140; 86769; 87040; 87045; 87046; 87077; 87177; 87186; 87206; 87207; 87493; 87899; 96365; 96367; 99285; 99285-25; A9270-GY; J1720; J1815-GY; J2185; J2543; J3475; J3480; J3490; J7030; M0222; Q0222; U0002

== ENCOUNTER 2022-02-11 10:21 | Emergency (ER) | payer MEDICAID, OTHER ==
[2022-02-11] MEDS ORDERED: Sodium Chloride 0.9% 10 ML Syringe FLUSH PRN (10:27)
[2022-02-11] MEDS ORDERED: Sodium Chloride 0.9% 1,000 ML IV ONE ×2 (10:53→11:31)
[2022-02-11 16:59] LABS: ANION GAP 11.7 mEq/L (7-13)
== END 2022-02-11 17:30 | disposition home or self-care (01) ==
LOC: DL.ED 10:21
DX: E86.0 Dehydration (principal); N17.9 Acute kidney failure, unspecified; E11.9 Type 2 diabetes mellitus without complications; E66.9 Obesity, unspecified; Z68.25 Body mass index [BMI] 25.0-25.9, adult; Z79.899 Other long term (current) drug therapy; Z79.4 Long term (current) use of insulin; Z86.16 Personal history of COVID-19
CPT/HCPCS: 36415; 80048; 81001; 83605; 83880; 84484; 85025; 93005; 96360; 96361; 99284; J3490; J7030

== ENCOUNTER 2023-11-14 17:27 | Emergency (ER) | payer MEDICAID ==
[2023-11-14] MEDS: Albuterol/Ipratropium 3.0-0.5 MG/3 ML Neb Soln NEB ONE (17:54)
[2023-11-14] MEDS: Dexamethasone 4 MG/ML SDV PO ONE (17:55)
[2023-11-14] MEDS ORDERED: Doxycycline Monohydrate 100 MG Cap PO ONE (18:14)
[2023-11-14] MEDS ORDERED: Albuterol 6.7 GM Inhaler INH ONE (18:14)
== END 2023-11-14 18:29 | disposition home or self-care (01) ==
LOC: DL.ED 17:27
DX: J18.9 Pneumonia, unspecified organism (principal); E11.9 Type 2 diabetes mellitus without complications; E66.9 Obesity, unspecified; Z68.30 Body mass index [BMI] 30.0-30.9, adult; Z79.4 Long term (current) use of insulin; Z79.899 Other long term (current) drug therapy
CPT/HCPCS: 71045; 99285; J8540; 99284; J7620-GY

== ENCOUNTER 2023-12-23 20:16 | Emergency (ER) | payer MEDICAID ==
[2023-12-23] MEDS: Doxycycline Monohydrate 100 MG Cap PO ONE (21:04)
== END 2023-12-23 21:05 | disposition home or self-care (01) ==
LOC: DL.ED 20:16
DX: J18.9 Pneumonia, unspecified organism (principal); E11.9 Type 2 diabetes mellitus without complications; E66.9 Obesity, unspecified; Z86.16 Personal history of COVID-19; Z79.899 Other long term (current) drug therapy; Z79.4 Long term (current) use of insulin; Z68.30 Body mass index [BMI] 30.0-30.9, adult
CPT/HCPCS: 99283; 99284; A9270

== ENCOUNTER 2024-04-20 05:33 | Day surgery (SDC) | payer BC, MEDICAID, MEDICARE ==
[2024-04-20] MEDS: Dextrose 5%-0.45% NaCl 1,000 ML IV SCH (06:07)
[2024-04-20] MEDS ORDERED: Midazolam 1 MG/ML 2 ML SDV ONE (06:11)
[2024-04-20] MEDS ORDERED: Midazolam 1 MG/ML 2 ML SDV IV ONE (06:11)
[2024-04-20] MEDS ORDERED: fentaNYL 100 MCG/2 ML SDV ONE (06:11)
[2024-04-20] MEDS ORDERED: fentaNYL 100 MCG/2 ML SDV IV ONE (06:11)
[2024-04-20] MEDS: fentaNYL 100 MCG/2 ML SDV IV ONE ×2 (07:16)
[2024-04-20] MEDS: Midazolam 1 MG/ML 2 ML SDV IV ONE ×5 (07:17→07:24)
== END 2024-04-20 08:40 | disposition home or self-care (01) ==
LOC: DL.ENDO 05:33
PROVIDERS: ATTEND Internal Medicine Gastroenterology
DX: K64.8 Other hemorrhoids (principal); E11.9 Type 2 diabetes mellitus without complications; E66.9 Obesity, unspecified; G47.33 Obstructive sleep apnea (adult) (pediatric)
CPT/HCPCS: J2250; J3010; J7799

== ENCOUNTER 2025-02-11 10:58 | Emergency (ER) | payer MEDICARE ==
[2025-02-11] MEDS: Bacitracin Oint 1 GM U/D Packet TOP ONE (11:57)
== END 2025-02-11 12:05 | disposition home or self-care (01) ==
LOC: EEVIPCON 10:58 → DL.ED 10:58
DX: S61.213A Laceration without foreign body of left middle finger without damage to nail, initial encounter (principal); E11.9 Type 2 diabetes mellitus without complications; E66.9 Obesity, unspecified; Z68.31 Body mass index [BMI] 31.0-31.9, adult; Z79.899 Other long term (current) drug therapy; W29.3XXA Contact with powered garden and outdoor hand tools and machinery, initial encounter
CPT/HCPCS: 12002; 99283; A9270; J2003